=== PATIENT | male | born 1975 | race Hispanic/Latino ===

== ENCOUNTER 2020-05-18 09:00 | Outpatient (NON) | payer OTHER, SELFPAY ==
[2020-05-19 00:26] LABS: SARS-CoV-2 RNA PCR Positive
== END 2020-05-18 09:01 ==
LOC: ANHCOVIDDT 09:01
PROVIDERS: Visit Provider Family Medicine
DX: R68.89 Other general symptoms and signs (principal); Z20.828 Contact with and (suspected) exposure to other viral communicable diseases
CPT/HCPCS: 87635; C9803; U0003

== ENCOUNTER 2021-04-13 00:49 | Day surgery (SDC) | payer OTHER, SELFPAY ==
[2021-04-03 15:51] VITALS: BMI 31.6
[2021-04-13 07:42] VITALS: BP 140/98; PULSE 83; RESP 20; TEMP 36.4; O2SAT 98; BMI 32.2
[2021-04-13] MEDS: LACTATED RINGERS 1,000 ML 150 ML IV CONT (07:49)
--- NOTE | 2021-04-13 08:03 | WPDANESEPPF ---
Anes - Initial Pre Proc Eval Procedure: Operation Date: 04/13/21 08:30 Proposed Procedures p Screening Colonoscopy - Antoni Allred MD Date/Time: 04/13/21 08:03 Surgeon: Antoni Allred MD Pre Op Diagnosis: neoplasm screening Patient Data Age: 45 Gender: M Height: 1.75 m Weight: 99.1 kg Last Vital Signs Temp 36.4 C L 04/13/21 07:42 Pulse 83 04/13/21 07:42 Resp 20 04/13/21 07:42 BP 140/98 H 04/13/21 07:42 Pulse Ox 98 04/13/21 07:42 Allergies Allergy/AdvReac Type Severity Reaction Status Date / Time No Known Allergies Allergy Verified 04/13/21 07:41 Home Medications Medication Instructions Recorded Confirmed Type alprazolam 0.5 mg PO DAILY PRN 04/03/21 04/03/21 History esomeprazole magnesium [Nexium 20 mg PO DAILY 04/03/21 04/03/21 History 24HR] sildenafil 100 mg PO PRN PRN 04/03/21 04/03/21 History testosterone cypionate 300 mg IM [id number] 04/03/21 04/03/21 History venlafaxine 75 mg PO DAILY 04/03/21 04/03/21 History venlafaxine 150 mg PO DAILY 04/03/21 04/03/21 History Patient hx anesthesia problems: none Family hx anesthesia problems: none Results Review: All pre-operative results and documents have been reviewed as part of the pre-operative evaluation. [facility] Past Medical History Medical History Anxiety Family History Family History Grandparent Depression Father Family history of throat cancer Patient's father is in good health Mother Depression Social History Social History Smoking status: Current some day smoker Second hand tobacco smoke exposure: No Smoking end date: 06/09/09 Additional smoking assessment comments: OCC. Alcohol intake: current Drinks per week: 1 Alcohol use details: BEER Substance use: current Substance use type: marijuana Other substance usage details: DAILY IN THE EVENING Living arrangements: with family Spiritual care concerns: No Anes - Eval Final PreProcedure Day of Procedure 04/13/21 08:03 Patient weight: obese Heart: regular rate and rhythm Lungs: clear to auscultation Airway: Mallampati scale class II Neurological: alert and oriented Last oral intake: >/= 8 hours ASA classification: III Emergent: no Anesthetic plan: proceed Anesthesia type and monitoring: general GIVS and standard monitoring Results Review: All pre-operative results and documents have been reviewed as part of the pre-operative evaluation. Informed Consent: The patient's anesthetic plan and its attendant risks and benefits were discussed with the patient/family/POA. Questions were solicited and answers provided to the satisfaction of the patient/family/POA.
--- NOTE | 2021-04-13 08:19 | WPDGICN ---
Assessment and Plan Assessment and plan (1) Encounter for screening colonoscopy: Code(s): Z12.11 - Encounter for screening for malignant neoplasm of colon Status: Acute Assessment and Plan: Patient presents for screening colonoscopy. Appears to be at average risk for colon polyps. GI Consult Note Consult date/time: 04/13/21 08:19 HPI: Nadeem Dela Cruz is a 45 year old male Presents for screening colonoscopy. Patient's current weight appetite bowel movements are normal. He denies abdominal pain. He has had no bleeding. Family history is noncontributory. Presents today for for screening colonoscopy. Review of Systems Review of Systems: All systems reviewed & are unremarkable except as noted in HPI and below PMFSH Past Medical History Medical History Anxiety Family History Family History Grandparent Depression Father Family history of throat cancer Patient's father is in good health Mother Depression Social History Social History Smoking status: Current some day smoker Second hand tobacco smoke exposure: No Smoking end date: 06/09/09 Additional smoking assessment comments: OCC. Alcohol intake: current Drinks per week: 1 Alcohol use details: BEER Substance use: current Substance use type: marijuana Other substance usage details: DAILY IN THE EVENING Living arrangements: with family Spiritual care concerns: No Meds Home Medications and Allergies Home Medications Medication Instructions Recorded Confirmed Type alprazolam 0.5 mg PO DAILY PRN 04/03/21 04/03/21 History esomeprazole magnesium [Nexium 20 mg PO DAILY 04/03/21 04/03/21 History 24HR] sildenafil 100 mg PO PRN PRN 04/03/21 04/03/21 History testosterone cypionate 300 mg IM [id number] 04/03/21 04/03/21 History venlafaxine 75 mg PO DAILY 04/03/21 04/03/21 History venlafaxine 150 mg PO DAILY 04/03/21 04/03/21 History Allergies Allergy/AdvReac Type Severity Reaction Status Date / Time No Known Allergies Allergy Verified 04/13/21 07:41 Vital Signs Vital Signs - 24 hr 04/13/21 07:42 Temperature 97.5 F L Pulse Rate 83 Respiratory Rate 20 Blood Pressure 140/98 H Pulse Oximetry 98 Exam Narrative: Physical exam reveals patient be alert. Vital signs stable. HEENT exam is unremarkable. Patient is anicteric. Lungs are clear to auscultation and percussion. Heart is without murmur or extra sounds. Abdominal exam bowel sounds are present soft nontender with no hepatosplenomegaly. Digital external rectal exam is normal.
[2021-04-13 08:48] VITALS: BP 124/92; PULSE 84; RESP 20; O2SAT 97
[2021-04-13 08:58] VITALS: BP 127/90; PULSE 76; RESP 20; O2SAT 98
[2021-04-13 09:08] VITALS: BP 125/85; PULSE 70; RESP 18; O2SAT 100
== END 2021-04-13 09:15 | disposition home or self-care (01) ==
PROVIDERS: PCP Family Medicine; Visit Provider Internal Medicine Gastroenterology
PROC: 0DJD8ZZ Inspection of Lower Intestinal Tract, Via Natural or Artificial Opening Endoscopic (ICD-10-PCS; CPT 45378; principal; 2021-04-13 08:30)
DX: Z12.11 Encounter for screening for malignant neoplasm of colon (principal); F41.9 Anxiety disorder, unspecified; Z72.0 Tobacco use; F12.90 Cannabis use, unspecified, uncomplicated; E66.9 Obesity, unspecified; Z68.32 Body mass index [BMI] 32.0-32.9, adult
CPT/HCPCS: 45378; J2704; J7120

== ENCOUNTER 2024-12-08 09:47 | Outpatient (CLI) | payer OTHER, SELFPAY ==
--- NOTE | ~2024-12-08 | XR_ITS ---
Clinical Indication: Cough PA and lateral views of the chest: Comparison: None Findings: The lungs are clear, without evidence of focal consolidation or pleural effusion. Cardiome diastinal silhouette is within normal limits. Bones and soft tissues are unremarkable. Impression: Normal chest. Reviewed, dictated and finalized at location . Impression: Normal chest.
== END 2024-12-08 09:48 | disposition home or self-care (01) ==
LOC: MICIMG 09:50
PROVIDERS: PCP Nurse Practitioner Family; Visit Provider Nurse Practitioner Family
DX: R05.3 Chronic cough (principal)
CPT/HCPCS: 71046